=== PATIENT | female | born 1945 | race Caucasian/White ===

== ENCOUNTER 2016-05-10 10:52 | Emergency (ER) | payer OTHER ==
[~2016-05-10] VITALS: Ht 165.1 cm; Wt 98.6 kg
[~2016-05-10 10:52] MED LIST: ALBU8.5H4 IH; Pulmicort INH; asacol PO
[2016-05-10 10:56] VITALS: BP 154/88; PULSE 107; RESP 14; O2SAT 96
--- NOTE | 2016-05-10 11:04 | ED.REPORT ---
HPI-Dyspnea / Wheezing Date of Service May 10, 2016 ED Provider: History of Present Illness: 71-year-old female here for shortness of breath and chest pain. She was sent from the walk-in clinic. She has had difficulty with inhalation for 2 days, there is pain and over her sternum with inhalation. She feels short of breath that increases with movement. Her chest pain does not change with inhalation, it is there constantly over her sternum and just to the right and left of midline. She does not have any recent travel, she has never had a blood clot, she has no lower extremity edema or pain. She has never had a heart attack. She is a nonsmoker. Does have a history of seasonal allergies and asthma but has not had a flareup in many years. No other lung disease. She is a type II diabetic. The chest pain also increases with palpation. Nursing Notes Stated Complaint: SHORTNESS OF BREATH/ SENT FROM URGENT CARE Chief Complaint: Respiratory Complaints Nursing Notes Reviewed: Yes Allergies: Coded Allergies: Shellfish (Verified Allergy, Unknown, 05/10/16) honey (Verified Allergy, Unknown, 05/10/16) Scheduled ([asacol]) 3 TAB PO BID ([Pulmicort]) 2 PUFFS INH BID ([vit D3 1000 units ]) 1,000 PO BID ([Vit B-12]) Unknown Dose PO DAILY Albuterol-Expunged Drug, Do Not Renew! (Albuterol-Expunged Drug, Do Not Renew!) 8.5 Gm Hfa.aer.ad 2 PUFFS IH PRN Azithromycin (Zithromax (Z-Kiran)) 250 Mg Tablet 250 MG PO DIRECTED Take two tablets by mouth on day 1, then take one tablet daily on days 2 through 5. Multivitamin (Multi Vitamin Daily) 1 Each Tablet 1 EACH PO DAILY Rosuvastatin Calcium (Rosuvastatin Calcium) 10 Mg Tablet 10 PO DAILYWD Miscellaneous Medications Albuterol HFA (Proair HFA) 8.5 Gm Hfa.aer.ad Insulin Aspart (NovoLOG U-100 Pen) 100 Unit/Ml Insuln.pen Insulin Glargine (Lantus U100 Solostar Insulin Pen) 100 Unit/1 Ml Insuln.pen Losartan Potassium (Losartan Potassium) 25 Mg Tablet Mesalamine (Lialda) 1.2 Gm Tablet.dr Fang Time Seen by MD: 11:03 Chief Complaint Chest pain, Shortness of breath Hx Obtained From: Patient Onset Occurred: 2 days ago Symptom Duration: Since onset Past Medical History Past Medical History Notes: Type II diabetes. Asthma Review of Systems Basic Review of Systems Eyes: Vision NL, No discharge GI: No abdominal pain, No nausea, No vomiting : No dysuria, No frequency Hematologic: No bleeding, No bruising Endocrine: No weight gain, No weight loss Neurologic: NL mental status, No weakness, No numbness Psychiatric: Normal thought content Constitutional: Denies: Chills, Fatigue, Fever Respiratory: Reports: Dyspnea on exertion, Shortness of breath, Denies: Non-productive cough, Wheezing Cardiovascular: Reports: Chest pain, Dyspnea on exertion, Denies: Edema Musculoskeletal: Denies: Back pain, Extremity pain, Extremity swelling Complete sys rev & neg: except as marked. Physical Exam Initial Vital Signs Vital Signs (First) Date Time Temp Pulse Resp B/P Pulse Ox O2 Delivery O2 Flow Rate FiO2 05/10/16 10:56 36.4 107 14 154/88 96 Room Air Initial VS: Reviewed Head / Eyes: Atraumatic, Normocephalic, PERRL ENT: Mucous membranes moist, Conjunctiva normal, No scleral icterus Abdomen / GI: Soft, Non-tender, No guarding, No rebound, No distention Lymphatic: No lymphadenopathy Extremities: Vascular intact, Neuro intact, No swelling, No tenderness Skin: Warm, Dry, No cyanosis Neurologic: Alert, Oriented, Nonfocal Psychiatric: Mood/affect normal, Behavior normal, Normal thought content Respiratory / Chest: Atraumatic, Breath sounds NL, Breath sounds = bilat, No respiratory distress, No rales, No rhonchi, No wheezing, No retractions Chest Wall / Ribs: Positive: Chest tender upper L, Chest tender upper R Cardiovascular: Regular rhythm, Heart sounds NL, No gallop, No murmurs, No rubs , Cap refill not delayed, Peripheral circulation NL, Pulses = bilaterally Heart Rate / Rhythm: Positive: Tachycardia HR 102-107 Interpretation & Diagnostics Interpretation & Diagnostics: IMPRESSION: 1. No pulmonary embolus. 2. Hypoattenuating nodule in 3. Bilateral lung nodules stable compared to prior examinations. the right lobe of the thyroid gland stable compared to prior examinations. 4. Atherosclerosis including the coronary vasculature. Lab Results Interpretation Result Diagram: 05/10/16 1130 05/10/16 1130 Test 05/10/16 11:30 White Blood Count 8.8th/mm3 (3.8-10.1) Red Blood Count 4.46mil/mm3 (3.90-5.20) Hemoglobin 13.6g/dL (12.0-15.6) Hematocrit 40.6% (35.0-46.0) Mean Corpuscular Volume 91.0fL (81-100) Mean Corpuscular Hemoglobin 30.5pg (27.0-35.0) Mean Corpuscular Hemoglobin Concent 33.5% (32.0-37.0) Red Cell Distribution Width 13.0% (12.3-15.4) Platelet Count 318bil/L (150-400) Neutrophils (%) (Auto) 71.9% (40-74) Lymphocytes (%) (Auto) 18.0% (14-46) Monocytes (%) (Auto) 8.0% (4-12) Eosinophils (%) (Auto) 1.4% (0-5) Basophils (%) (Auto) 0.5% (0-3) Prothrombin Time 9.9sec (8.1-12.5) Prothromb Time International Ratio 0.93ratio D-Dimer 0.7mg/L (<0.50) Sodium Level 137mEq/L (134-144) Potassium Level 4.1mEq/L (3.5-5.2) Chloride Level 99mEq/L (97-108) Carbon Dioxide Level 23mmol/L (18-29) Blood Urea Nitrogen 17mg/dL (8-27) Creatinine 0.67mg/dL (0.57-1.00) Estimat Glomerular Filtration Rate 124mL/min (>59) Glucose Level 184mg/dL (60-99) Calcium Level 9.1mg/dL (8.5-10.1) Total Bilirubin 0.3mg/dL (0.0-1.2) Aspartate Amino Transf (AST/SGOT) 20U/L (0-50) Alanine Aminotransferase (ALT/SGPT) 15U/L (0-32) Alkaline Phosphatase 83U/L (25-165) Troponin T 0.010ug/L (0.0-0.011) Total Protein 7.3g/dL (6.4-8.4) Albumin 4.0g/dL (3.4-5.0) Hold Vogt Top Tube Received (Received) Re-Eval/Medical Decision Med Decision/Clinical Course Discussed results of d-dimer, chest x-ray and labs. She does not feel like she has pneumonia. She has had pneumonia in the past does not feel like this. Discussed her L d-dimer was mildly elevated but adjusted to be normal for her age. Since it does not feel like a pneumonia to her we will get the PE study. 1455 Discussed negative PE study. We will treat for pneumonia. Follow-up with her PCP next week and return if worsening Discharge & Departure Shift Change Sign-Out Laboratory Evaluation: Lab evaluation discussed Imaging Studies: Imaging discussed Response to Therapy: Improved Impression: Primary Impression: Pneumonia Pneumonia type: due to unspecified organism Laterality: left Lung location : unspecified part of lung Qualified Code: J18.9 - Pneumonia, unspecified organism Disposition: Home Discharge Condition All VS Reviewed: Yes Condition: Stable Patient Instructions: Bacterial Pneumonia (GEN) Additional Instructions: We are treating you today for pneumonia. Also consider a muscular strain of your chest. Take Tylenol for this and stretch. If your symptoms worsen return to the emergency room immediately. Specifically if you get fevers, worsening short of breath, worsening chest pain, or any other concerning symptoms. Otherwise, make sure he follow up with your PCP early next week. Referrals: Gabrielle Romero MD (PCP) copies to: Gabrielle Romero MD, Timothy S DO May 10, 2016 11:04 Tana Silvestre May 10, 2016 11:05
[2016-05-10 11:36] VITALS: BP 134/64; PULSE 99; RESP 20; O2SAT 94
[2016-05-10 11:49] LABS: BASOPHILS % (AUTO) 0.5 % (0-3); EOSINOPHILS % (AUTO) 1.4 % (0-5); Mean Corpuscular Hemoglobin 30.5 pg (27.0-35.0); NEUTROPHILS % (AUTO) 71.9 % (40-74); Platelet Count 318 bil/L (150-400)
[2016-05-10 11:56] LABS: INR 0.93 ratio
[2016-05-10] MEDS ORDERED: INSU100I13 (12:00)
[2016-05-10] MEDS ORDERED: ALBU8.5H2 (12:00)
[2016-05-10] MEDS ORDERED: ROSU10TA24 PO (12:00)
[2016-05-10] MEDS ORDERED: INSU100I (12:00)
[2016-05-10] MEDS ORDERED: MESA1.2T2 (12:00)
[2016-05-10] MEDS ORDERED: LOSA25TA21 (12:00)
[2016-05-10 12:06] LABS: TROPONIN T 0.01 ug/L (0.0-0.011)
[2016-05-10] MEDS ORDERED: MULT-1018 PO (12:10)
--- NOTE | 2016-05-10 12:15 | DRSVH ---
PROCEDURE: X-RAY CHEST ONE VIEW, PORTABLE ([id number]) INDICATIONS: chest pain TECHNIQUE: One view of the chest was acquired. COMPARISON: [facility], CR, XR CHEST 2VW, 05/07/2015, 14:13. None. FINDINGS: Surgical changes and devices: None. Lungs and pleura: No pleural effusions or pneumothorax. Focal opacity noted in the left lung base boogie spicious for pneumonia. Streaky opacities in the right costophrenic angle are stable likely represen t ankle spine. Mediastinum: Mediastinal contours appear normal. Heart size is normal. Bones and chest wall: No suspicious bony lesions. Overlying soft tissues appear unremarkable. IMPRESSION: Focal opacity in the left lung base suspicious for pneumonia. Recommend followup imagin g to resolution to exclude underlying neoplastic process. Dictated by: Teresa Hernandez MD, PhD on 05/10/2016 at 12:13 Approved by: Teresa Hernandez MD, PhD on 05/10/2016 at 12:13
[2016-05-10] MEDS ORDERED: VIT B12 PO (12:30)
[2016-05-10] MEDS ORDERED: VIT D PO (12:30)
[2016-05-10 13:00] VITALS: BP 142/71; PULSE 101; RESP 19; O2SAT 97
--- NOTE | 2016-05-10 14:46 | DRSVH ---
PROCEDURE: CT ANGIO CHEST PULMONARY EMBOLISM ([id number]) INDICATIONS: breathing difficulty TECHNIQUE: After the administration of intravenous contrast, 2 mm thick sections acquired from the pulmonary api tai to the posterior costophrenic angles. 3-dimensional maximum intensity projection (MIP) coronal a nd sagittal reformats were then acquired through the thorax. For radiation dose reduction, the follo wing was used: automated exposure control, adjustment of mA and/or kV according to patient size. COMPARISON: [facility], US, US GUIDED BX THYROID (FNA), 09/28/2015, 11:24. [facility], US, US THYROID, 09/07/2015, 15:14. [facility], CT, CT CHEST WO CON , 08/08/2015, 16:20. FINDINGS: Image quality: Excellent. Pulmonary arteries: Pulmonary arteries are normal in size, and demonstrate no intraluminal filling d efects to suggest central pulmonary embolism. Lungs and pleura: Lungs are clear opacities. Small lung nodules with largest nodules in the right m iddle lobe (7 mm) and left lower lobe (7 mm) are stable compared to prior examination. No pleural ef fusions or pneumothorax. Central and peripheral airways are patent. Mediastinum: Heart size is normal, without pericardial effusion. Carotid calcifications noted in the aorta and the coronary vasculature. No mediastinal or hilar adenopathy. Thoracic aorta is normal i n caliber and enhancement. Esophagus is normal in caliber, without hiatal hernia. Bones and chest wall: No suspicious bony lesions. Ribs and thoracic spine appear intact throughout. Thyroid gland veins a large, approximately 3.3 cm in diameter hypoattenuating nodule in the right l obe.. No axillary or supraclavicular adenopathy. Abdomen: Right renal cyst is partially visualized. Visualized upper abdominal solid organs appear n ormal in the early arterial phase of enhancement. IMPRESSION: 1. No pulmonary embolus. 2. Hypoattenuating nodule in 3. Bilateral lung nodules stable compared to prior examinations. the right lobe of the thyroid gland stable compared to prior examinations. 4. Atherosclerosis including the coronary vasculature. Dictated by: Teresa Hernandez MD, PhD on 05/10/2016 at 14:37 Approved by: Teresa Hernandez MD, PhD on 05/10/2016 at 14:43
[2016-05-10] MEDS ORDERED: AZIT250T4 PO (14:59)
[2016-05-10 15:51] VITALS: BP 156/82; PULSE 102; RESP 21; O2SAT 96
== END 2016-05-10 15:10 | disposition home or self-care (01) ==
LOC: SED 10:52
DX: J18.9 Pneumonia, unspecified organism (principal); E11.9 Type 2 diabetes mellitus without complications; J45.909 Unspecified asthma, uncomplicated; Z79.4 Long term (current) use of insulin
CPT/HCPCS: 36415; 71010; 71275; 80053; 84484; 85025; 85379; 85610; 93005; 99285; Q9967